=== PATIENT | female | born 1970 ===

== ENCOUNTER → 2022-05-16 | Outpatient (CLI) | payer OTHER | END | disposition home or self-care (01) | LOC: SONOGRAMA 08:56 | PROVIDERS: ATTEND Pathology Anatomic Pathology & Clinical Pathology | DX: R22.0 Localized swelling, mass and lump, head (principal); M26.03 Mandibular hyperplasia ==

== ENCOUNTER 2024-07-23 10:45 | Outpatient (CLI) | payer OTHER | END 2024-07-23 10:46 | disposition home or self-care (01) | LOC: RAD 10:45 | DX: M99.03 Segmental and somatic dysfunction of lumbar region (principal); M99.04 Segmental and somatic dysfunction of sacral region; M99.05 Segmental and somatic dysfunction of pelvic region ==